=== PATIENT | female | born 1990 | race Caucasian/White ===

== ENCOUNTER 2016-03-24 11:34 | Emergency (ER) | payer SELFPAY ==
[~2016-03-24] VITALS: Ht 170.2 cm; Wt 77.0 kg
[~2016-03-24 11:34] MED LIST: BACT400T PO; CEPH-459 PO; CLIN1CAP5 PO
[2016-03-24 11:38] VITALS: BP 116/63; PULSE 74; RESP 16; TEMP 98.6; O2SAT 98
--- NOTE | 2016-03-24 13:46 | PD ---
HPI Chief Complaint: Medical Clearance Time Seen by Provider: 13:46 Travel History International Travel<30 days: No Contact w/Intl Traveler<30days: No Traveled to known affect area: No History of Present Illness HPI 26 year-old female history of IV drug abuse, currently on Suboxone, presents to the emergency department with [facility] Davis staff member for viability and estimated gestation. Patient states she her last cycle was in December. She has taken positive test. She is currently not using IV drugs but is on Suboxone. Denies any abdominal pain, nausea, vomiting, cramping. No vaginal bleeding or discharge. No urinary symptoms. No other symptoms to report. PFSH Past Medical History Arthritis: No Asthma: No Autoimmune Disease: No Blood Disorders: No Anxiety: No Depression: No Heart Rhythm Problems: No Cancer: No Cardiovascular Problems: No High Cholesterol: No Chemotherapy: No Chest Pain: No Congestive Heart Failure: No COPD: No Diabetes: No Diminished Hearing: No Endocrine: No Gastrointestinal Disorders: No GERD: Yes Genitourinary: No Headaches: No Hepatitis: Yes (C) Hypertension: No Immune Disorder: No Implanted Vascular Access Dvce: No Kidney Stones: No Musculoskeletal: No Neurologic: No Psychiatric: No Reproductive: No Respiratory: No Immunizations Current: Yes Migraines: No Radiation Therapy: No Renal Failure: No Seizures: No Sickle Cell Disease: No Sleep Apnea: No Thyroid Disease: No Ulcer: No PNEUMOCCOCAL Vaccine (Year): 2 ?: LMP: 01/05/16 : 0 Past Surgical History Abdominal Surgery: No (CHOLECYSTECTOMY) AICD: No Arteriovenous Shunt: No Cardiac Surgery: No Cholecystectomy: Yes Ear Surgery: No Endocrine Surgery: No Eye Surgery: No Genitourinary Surgery: No Gynecologic Surgery: No Insulin Pump: No Neurologic Surgery: No Oral Surgery: No Pacemaker: No Thoracic Surgery: No Other Surgery: Yes (GALLBLADDER , LEFT KNEE) Social History Alcohol Use: No Tobacco Use: Yes (2 PPD) Substance Use: Yes Allergies-Medications (Allergen,Severity, Reaction): Coded Allergies: Tramadol (Verified Allergy, Severe, Nausea/Vomiting, 03/24/16) Penicillin (Verified Allergy, Intermediate, 03/24/16) Codeine (Verified Allergy, Unknown, 03/24/16) *MDRO Multi-Drug Resistant Organism (Unverified Adverse Reaction, Unknown , 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 HEAD: Atraumatic. Normocephalic. EYES: Pupils equal and round. No scleral icterus. No injection or drainage. ENT: No nasal bleeding or discharge. Mucous membranes pink and moist. NECK: Trachea midline. No JVD. CARDIOVASCULAR: Regular rate and rhythm. No murmur appreciated. RESPIRATORY: No accessory muscle use. Clear to auscultation. Breath sounds equal bilaterally. GASTROINTESTINAL: Abdomen soft, non-tender, nondistended. Hepatic and splenic margins not palpable. MUSCULOSKELETAL: No obvious deformities. No clubbing. No cyanosis. No edema. NEUROLOGICAL: Awake and alert. No obvious cranial nerve deficits. Motor grossly within normal limits. Normal speech. PSYCHIATRIC: Appropriate mood and affect; insight and judgment normal. Data Data Last Documented VS Vital Signs Date Time Temp Pulse Resp B/P Pulse Ox O2 Delivery O2 Flow Rate FiO2 03/24/16 11:38 98.6 74 16 116/63 98 Room Air Orders Beta Hcg (Quant/Titer) (03/24/16 13:44) Us Pelvis (Ques Preg/Ectopic) (03/24/16 ) Labs Laboratory Tests Test 03/24/16 14:22 Human Chorionic Gonadotropin, [address] MIU/ML Quant [facility] Medical Decision Making Medical Screen Exam Complete: Yes Emergency Medical Condition: Yes Medical Record Reviewed: Yes Differential Diagnosis intrauterine versus ectopic versus amenorrhea versus spontaneous versus threatened miscarriage Narrative Course 26 year-old female presents to the emergency department for evaluation of viability and approximate gestation age. Beta hCG is 41,708. Ultrasound does intrauterine , viable, 6 weeks gestation. Information is provided to the patient. She is discharged with the [facility] Davis staff member. I have encouraged her to seek odd shoe examiner evaluation and care. She agrees to return immediately with any acute worsening symptoms. Diagnosis Primary Impression: Intrauterine Additional Impression: IV drug abuse Referrals: [facility] Patient Instructions: First Trimester (ED), General Instructions Additional Instructions: Intrauterine at 6 weeks as confirmed by ultrasound with positive heartbeat Follow-up with an BANDER OPERATOR Return immediately to the emergency department with any acute worsening symptoms Med/Other Pt SpecificInfo: Prescription(s) given Scripts Vit-Iron Carbonyl ( Plus Iron 29-1 mg)1 Tab Tab1 Tab PO DAILY #30 TAB Ref 0 Prov:Janel Leach 03/24/16 Disposition: 01 DISCHARGE HOME Condition: Stable Janel Leach Mar 24, 2016 13:46
[2016-03-24 15:38] LABS: BETA HCG QUANT 41708 MIU/ML (0-5)
[2016-03-24] MEDS ORDERED: PREN29TA PO (16:12)
--- NOTE | 2016-03-24 16:24 | RADRPT ---
EXAM DATE/TIME: 03/24/2016 15:57 [facility] COMPARISON: No previous studies available for comparison. INDICATIONS : Pelvic spotting. LAB(S): Beta-hC,708 MEDICAL HISTORY : . Gastroesophageal reflux disease. Hepatitis C. Substance use. MRSA. SURGICAL HISTORY : Cholecystectomy. Orthopedic surgery, left knee ACL. ENCOUNTER: Initial ACUITY: 1 day PAIN SCORE: 0/10 LOCATION: Bilateral pelvis MEASUREMENTS: UTERUS: 7.8 x 7.0 x 4.7 cm ENDOMETRIAL STRIPE: 18 mm RIGHT OVARY: 3.6 x 1.9 x 1.5 cm LEFT OVARY: 2.4 x 2.1 x 1.9 cm FINDINGS: There is a viable intrauterine measuring approximately 6 weeks' duration with yolk sac and pole identified in normal heart rate of 126 beats per minute. Adjacent to this there is a thin area of low density suggesting a possible small subperiosteal hemorrhage. Bilateral ovaries are normal with no free fluid there CONCLUSION: 6 week viable intrauterine . Suggestion of an adjacent small subchorionic tear.. Devin Wright MD on March 24, 2016 at 16:20 Board Certified Radiologist. This report was verified electronically.
== END 2016-03-24 16:42 | disposition home or self-care (01) ==
LOC: NETRI 11:34
DX: O26.91 Pregnancy related conditions, unspecified, first trimester (principal); O99.331 Smoking (tobacco) complicating pregnancy, first trimester; F15.21 Other stimulant dependence, in remission; F17.210 Nicotine dependence, cigarettes, uncomplicated; Z87.898 Personal history of other specified conditions; Z3A.01 Less than 8 weeks gestation of pregnancy
CPT/HCPCS: 76700; 84702